=== PATIENT | female | born 1955 | race Caucasian/White ===

== ENCOUNTER 2018-01-30 18:05 | Emergency (ER) | payer SELFPAY ==
[~2018-01-30] VITALS: Ht 152.4 cm; Wt 53.5 kg
[2018-01-30 18:52] VITALS: BP 142/88
[2018-01-30] MEDS ORDERED: LIDOCAINE 1% (LOCAL ANESTH.) PF 5ml SDV ONE (21:39)
[2018-01-30] MEDS ORDERED: LIDOCAINE 1% (LOCAL ANESTH.) PF 5ml SDV IJ ONE (22:45)
== END 2018-01-30 22:51 | disposition home or self-care (01) ==
LOC: ER 18:05
DX: S61.011A Laceration without foreign body of right thumb without damage to nail, initial encounter (principal); W25.XXXA Contact with sharp glass, initial encounter; Y93.89 Activity, other specified; Y99.8 Other external cause status; Y92.89 Other specified places as the place of occurrence of the external cause
CPT/HCPCS: 12002